=== PATIENT | female | born 1990 | race Caucasian/White ===

== ENCOUNTER 2024-12-24 20:24 | Emergency (ER) | payer MEDICAID ==
[~2024-12-24] VITALS: Ht 165.1 cm; Wt 69.0 kg
[2024-12-24 20:32] VITALS: O2SAT 98
[2024-12-24] MEDS: SODIUM CHLORIDE 0.9% 1,000 ML IV ONE (21:15)
[2024-12-24] MEDS: LORAZEPAM 2MG/ML INJ IV STA (22:40)
[2024-12-25 00:45] LABS: CHLORIDE 111 mEq/L (98-107); POTASSIUM 3.6 mEq/L (3.5-5.1); SODIUM 144 mEq/L (136-145)
[2024-12-25 00:46] LABS: CARBON DIOXIDE 21 mEq/L (21-32)
[2024-12-25 00:50] LABS: BASOPHILS % 0.4 % (0.0-2.0); EOSINOPHILS % 0.4 % (0.0-5.0); HEMATOCRIT. 42.3 % (36.0-48.0); HEMOGLOBIN. 14.1 g/dL (12.0-16.0); LYMPHOCYTES % 13.9 % (20.0-50.0); MEAN CORPUSCULAR HEMOGLOBIN 30.3 pg (28.0-32.0); MEAN CORPUSCULAR HGB CONC 33.2 g/dL (31.0-37.0); MEAN CORPUSCULAR VOLUME 91.4 fL (81.0-99.0); MEAN PLATELET VOLUME 10.6 fl (7.4-10.4); MONOCYTES % 5.8 % (2.0-8.0); NEUTROPHILS % 79.5 % (40.0-76.0); PLATELET 219 x1000/uL (130-400); RED BLOOD CELL COUNT 4.63 mill/uL (4.2-5.4); RED CELL DISTRIBUTION WIDTH 14.3 % (11.6-14.6); WHITE BLOOD COUNT 12.3 x1000/uL (4.5-11.0)
[2024-12-25 00:51] LABS: CREATININE 0.8 mg/dL (0.6-1.0); GLUCOSE 145 mg/dL (70-105); UREA NITROGEN BLOOD 10 mg/dL (9-23)
[2024-12-25 00:53] LABS: ACETAMINOPHEN < 2 ug/mL (10-30)
[2024-12-25 00:56] LABS: THYROID STIMULATING HORMONE 0.63 uIU/mL (0.55-4.78)
[2024-12-25 00:59] LABS: ETHANOL BLOOD < 10 mg/dL (<10); TROPONIN I HIGH SENSITIVITY < 4 ng/L (3.0-34)
[2024-12-25 03:13] VITALS: BP 118/76; PULSE 89; RESP 16; TEMP 36.7; O2SAT 98
[2024-12-25 03:53] LABS: CLARITY URINE CLEAR (CLEAR); COLOR URINE YELLOW (YELLOW); GLUCOSE URINE NEGATIVE (NEGATIVE); KETONES URINE NEGATIVE (NEGATIVE); LEUKOCYTE ESTERASE URINE NEGATIVE (NEGATIVE); NITRITE URINE NEGATIVE (NEGATIVE); OCCULT BLOOD URINE 3+ (NEGATIVE); PH URINE 7.5 (4.5-8.0); PROTEIN URINE NEGATIVE (NEGATIVE); SPECIFIC GRAVITY URINE 1.014 (1.005-1.030); UROBILINOGEN URINE 0.2 E.U./dL (0.2-1.0)
[2024-12-25 04:00] LABS: *AMPHETAMINES SCREEN URINE NEGATIVE (NEGATIVE); *BARBITURATES SCREEN URINE NEGATIVE (NEGATIVE); *BENZODIAZEPINES SCREEN URINE NEGATIVE (NEGATIVE)
[2024-12-25 04:01] LABS: *COCAINE SCREEN URINE NEGATIVE (NEGATIVE); ECSTASY MDMA SCREEN URINE NEGATIVE (NEGATIVE); METHADONE URINE SCREEN NEGATIVE (NEGATIVE); OPIATES URINE SCREEN NEGATIVE (NEGATIVE); PHENCYCLIDINE URINE SCREEN NEGATIVE (NEGATIVE)
[2024-12-25 04:05] LABS: SQUAMOUS EPITHELIAL CELL URINE 2+ /lpf (RARE/1+)
[2024-12-25 04:06] LABS: BACTERIA URINE TRACE; RBC URINE 0-2 /hpf (0-2)
[2024-12-25 04:48] LABS: CANNABINOID URINE SCREEN PRESUMPTIVE POSITIVE (NEGATIVE)
== END 2024-12-25 07:32 ==
LOC: ER 20:24
DX: R06.02 Shortness of breath (principal); F20.9 Schizophrenia, unspecified; Z20.822 Contact with and (suspected) exposure to COVID-19
CPT/HCPCS: 80305; 81003; 36415; 71045; 93005; 96361; 96374; 99285; 80048; 80307; 80329; 80320; 84443; 85025; 85379; 84484; 87426; J2060; J7030; G0480